=== PATIENT | female | born 1950 | race Caucasian/White ===

== ENCOUNTER 2020-11-18 11:51 | Emergency (ER) | payer MEDICARE, BC ==
[~2020-11-18] VITALS: Ht 147.3 cm; Wt 49.9 kg
[2020-11-18 11:51] VITALS: BP 109/68
[2020-11-18] MEDS ORDERED: HYDROcodone-ACET 5/325MG TAB PO ONE (12:15)
== END 2020-11-18 17:10 | disposition home or self-care (01) ==
LOC: EDBD 11:51 → ER 11:51
DX: S82.62XA Displaced fracture of lateral malleolus of left fibula, initial encounter for closed fracture (principal); M25.571 Pain in right ankle and joints of right foot; M25.561 Pain in right knee; I25.2 Old myocardial infarction; I25.10 Atherosclerotic heart disease of native coronary artery without angina pectoris; W01.0XXA Fall on same level from slipping, tripping and stumbling without subsequent striking against object, initial encounter; Y93.89 Activity, other specified; Y92.89 Other specified places as the place of occurrence of the external cause; Y99.8 Other external cause status
CPT/HCPCS: 29515; 73562; 73610